=== PATIENT | male | born 1950 | race Caucasian/White ===

== ENCOUNTER 2017-03-14 10:10 | Emergency (ER) | payer BC ==
[~2017-03-14 10:10] MED LIST: CENTRUM SILVER1 EACH PO; FISH OIL1 CAP PO; NORCO 5/3251 TAB PO; VITAMIN C PO; VITAMIN D1000 UNIT PO
[2017-03-14] MEDS ORDERED: ASPIRIN81 M1 PO (11:12)
[2017-03-14] MEDS ORDERED: MUCINEX600 M1 PO (11:13)
[2017-03-14] MEDS ORDERED: ULTRAVATE TOP (13:26)
[2017-03-14] MEDS ORDERED: PERCOCET 5-3251 EACH PO (13:35)
== END 2017-03-14 14:15 ==
LOC: EDMED 10:10
DX: S22.42XA Multiple fractures of ribs, left side, initial encounter for closed fracture (principal); W01.0XXA Fall on same level from slipping, tripping and stumbling without subsequent striking against object, initial encounter
CPT/HCPCS: J2270